=== PATIENT | female | born 1970 | race Caucasian/White ===

== ENCOUNTER 2023-09-06 12:44 | Inpatient (IN) ==
[2023-09-06] MEDS ORDERED: IOPAMIDOL 100 ML BOTTLE IV ONE (12:45)
[2023-09-06] MEDS ORDERED: 0.9 % SODIUM CHLORIDE 1,000 ML IV ONE ×2 (13:05→13:36)
[2023-09-06] MEDS ORDERED: IPRATROPIUM/ALBUTEROL 3 ML AMPUL.NEB NEB ONE (13:12)
[2023-09-06] MEDS ORDERED: cefTRIAXone 1 GM VIAL IV ONE (13:36)
[2023-09-06] MEDS ORDERED: AZITHROMYCIN 250 MG TABLET PO ONE (13:37)
[2023-09-06 14:42] LABS: ALT/SGPT 28 U/L (<40); AST/SGOT 50 U/L (<32); Albumin 3.9 gm/dL (3.2-5.2); Albumin/Globulin Ratio 1.6 (1.0-2.3); Alkaline Phosphatase 128 U/L (39-117); Bilirubin,Total 0.2 mg/dL (0.1-1.0); Blood Urea Nitrogen 12 mg/dL (6-20); Calcium 8.7 mg/dL (8.6-10.4); Carbon Dioxide 29 mmol/L (22-30); Chloride 88 mmol/L (96-108); Globulin 2.4 gm/dL (2.2-3.7); Glomerular Filtration Rate 47; Glucose 91 mg/dL (70-105); proBNP 411.7 pg/mL (<125.0)
[2023-09-06 14:46] LABS: Basophils # (Auto) 0 K/mcL (0.00-0.30); Basophils % (Auto) 0 % (0.0-2.0); Eosinophils # (Auto) 0 K/mcL (0.00-0.70); Eosinophils % (Auto) 0 % (0.0-7.0); Hematocrit 39.8 % (34.1-44.9); Hemoglobin 13.6 g/dL (11.2-15.7); Lymphocytes # (Auto) 0.19 K/mcL (1.50-4.80); Lymphocytes % (Auto) 31.7 % (15.5-49.0); Mean Cell Volume 87.1 fL (80.0-100.0); Mean Corpuscular HGB Conc 34.2 g/dL (31.0-36.0); Mean Platelet Volume 10.4 fL (8.8-12.5); Monocytes # (Auto) 0.04 K/mcL (0.10-0.90); Monocytes % (Auto) 6.7 % (1.0-12.0); Neutrophils % (Auto) 51.6 % (38.0-78.0); Platelet Count 110 K/mcL (140-440); RBC 4.57 M/mcL (3.59-5.38); Red Cell Distribution Width 12.5 % (11.5-14.5); WBC 0.6 K/mcL (4.5-11.0)
[2023-09-06] MEDS ORDERED: VANCOMYCIN PER PHARMACY IV ONE (16:33)
[2023-09-06] MEDS ORDERED: VANCOMYCIN 1,000 MG in 0.9 % SODIUM CHLORIDE 250 ML IV ONE (16:33)
[2023-09-06] MEDS ORDERED: VANCOMYCIN 750 MG in 0.9 % SODIUM CHLORIDE 250 ML IV ONE (16:45)
[2023-09-06 17:17] LABS: Anisocytosis 1+ (None Seen); Band Neutrophils % 24 % (0-10); Lymphocytes % 28 % (15-49); Metamyelocytes % 14 %; Monocytes % (Manual) 4 % (1-12); Myelocytes % 2 %; Platelet Estimate NORMAL (Normal); RBC Morphology ABNORMAL (Normal); Segmented Neutrophils % 28 % (38-78)
[2023-09-06] MEDS ORDERED: ONDANSETRON 4 MG/2 ML VIAL IV PRN (17:44)
[2023-09-06] MEDS ORDERED: IPRATROPIUM/ALBUTEROL 3 ML AMPUL.NEB NEB PRN (17:44)
[2023-09-06] MEDS ORDERED: POLYETHYLENE GLYCOL 3350 17 GM PACKET PO PRN (17:44)
[2023-09-06] MEDS ORDERED: POTASSIUM CHLORIDE 40 MEQ in DEXTROSE 5% IN WATER 500 ML IV PRN (17:44)
[2023-09-06] MEDS ORDERED: POTASSIUM CHLORIDE 20 MEQ TABLET PO PRN ×2 (17:44)
[2023-09-06] MEDS ORDERED: MAGNESIUM SULFATE 2 GM/50 ML BAG IV PRN (17:44)
[2023-09-06] MEDS ORDERED: 0.9 % SODIUM CHLORIDE 1,000 ML IV SCH (17:44)
[2023-09-06] MEDS ORDERED: PIPERACILLIN SODIUM/TAZOBACTAM 3.375 GM in DEXTROSE 5% IN WATER 50 ML IV ONE (18:00)
[2023-09-06] MEDS ORDERED: BACLOFEN 10 MG TABLET PO ONE ×2 (20:35→21:56)
[2023-09-06] MEDS ORDERED: BACLOFEN 10 MG TABLET PO PRN (20:58)
[2023-09-06] MEDS ORDERED: OSELTAMIVIR PHOSPHATE 75 MG CAPSULE PO ONE (21:00)
[2023-09-06] MEDS: PIPERACILLIN SODIUM/TAZOBACTAM 3.375 GM in DEXTROSE 5% IN WATER 100 ML IV SCH (21:55)
[2023-09-06] MEDS ORDERED: METHOCARBAMOL 500 MG TABLET PO PRN (21:55)
[2023-09-06] MEDS ORDERED: hydrOXYzine 25 MG TABLET PO PRN (21:55)
[2023-09-07] MEDS: ACETAMINOPHEN 325 MG TABLET PO PRN ×2 (00:30→16:01)
[2023-09-07] MEDS ORDERED: LACTATED RINGERS 1,000 ML IV ONE (02:04)
[2023-09-07] MEDS ORDERED: NOREPINEPHRINE BITARTRATE 4 MG/4 ML VIAL IV ONE (03:39)
[2023-09-07] MEDS ORDERED: 0.9 % SODIUM CHLORIDE 250 ML IV SCH (03:45)
[2023-09-07] MEDS: NOREPINEPHRINE BITARTRATE 8 MG in 0.9 % SODIUM CHLORIDE 242 ML IV SCH ×2 (03:52→18:37)
[2023-09-07] MEDS: 0.9 % SODIUM CHLORIDE 250 ML IV SCH ×2 (03:53→17:19)
[2023-09-07 07:08] LABS: ALT/SGPT 17 U/L (<40); AST/SGOT 36 U/L (<32); Albumin 2.7 gm/dL (3.2-5.2); Albumin/Globulin Ratio 1.3 (1.0-2.3); Alkaline Phosphatase 89 U/L (39-117); Bilirubin,Direct < 0.2 mg/dL (0-0.3); Bilirubin,Total 0.2 mg/dL (0.1-1.0); Blood Urea Nitrogen 7 mg/dL (6-20); Calcium 7.7 mg/dL (8.6-10.4); Carbon Dioxide 24 mmol/L (22-30); Chloride 102 mmol/L (96-108); Globulin 2.1 gm/dL (2.2-3.7); Glomerular Filtration Rate 104; Glucose 83 mg/dL (70-105); Lactate Dehydrogenase 245 U/L (135-225); Phosphorous 1.9 mg/dL (2.5-4.5); Triglycerides 91 mg/dL (<150); Uric Acid 1.1 mg/dL (2.5-8.0)
[2023-09-07] MEDS: PIPERACILLIN SODIUM/TAZOBACTAM 3.375 GM in DEXTROSE 5% IN WATER 100 ML IV SCH ×3 (07:09→22:52)
[2023-09-07 07:24] LABS: Hematocrit 38.1 % (34.1-44.9); Hemoglobin 12.5 g/dL (11.2-15.7); Mean Cell Volume 90.3 fL (80.0-100.0); Mean Corpuscular HGB Conc 32.8 g/dL (31.0-36.0); Mean Platelet Volume 10.5 fL (8.8-12.5); Platelet Count 111 K/mcL (140-440); RBC 4.22 M/mcL (3.59-5.38); Red Cell Distribution Width 13.1 % (11.5-14.5); WBC 1.2 K/mcL (4.5-11.0)
[2023-09-07] MEDS ORDERED: 0.9 % SODIUM CHLORIDE 1,000 ML IV SCH (08:45)
[2023-09-07] MEDS: ENOXAPARIN 30 MG/0.3 ML SYRINGE SQ SCH (08:59)
[2023-09-07] MEDS: SERTRALINE 50 MG TABLET PO SCH (08:59)
[2023-09-07] MEDS: QUEtiapine 25 MG TABLET PO SCH (08:59)
[2023-09-07] MEDS: OSELTAMIVIR PHOSPHATE 30 MG CAPSULE PO SCH ×2 (08:59→20:35)
[2023-09-07] MEDS: PHOSPHORUS 250 MG TABLET PO SCH ×4 (08:59→20:33)
[2023-09-07] MEDS ORDERED: NALOXONE SL SCH ×2 (09:00→21:00)
[2023-09-07] MEDS ORDERED: GABAPENTIN 300 MG CAPSULE PO SCH (09:00)
[2023-09-07] MEDS ORDERED: BUPRENORPHINE SL SCH ×2 (09:00→21:00)
[2023-09-07] MEDS ORDERED: busPIRone 15 MG TABLET PO SCH (09:00)
[2023-09-07] MEDS ORDERED: QUEtiapine 100 MG TABLET PO SCH (09:00)
[2023-09-07 09:32] LABS: Anisocytosis 1+ (None Seen); Band Neutrophils % 41 % (0-10); Lymphocytes % 20 % (15-49); Metamyelocytes % 4 %; Monocytes % (Manual) 9 % (1-12); Platelet Estimate DECREASED (Normal); RBC Morphology ABNORMAL (Normal); Segmented Neutrophils % 26 % (38-78)
[2023-09-07] MEDS: AZITHROMYCIN 500 MG in DEXTROSE 5% IN WATER 250 ML IV SCH (11:05)
[2023-09-07] MEDS ORDERED: ALBUMIN HUMAN 12.5 GM/50 ML VIAL IV ONE (12:00)
[2023-09-07] MEDS: BUPRENORPHINE SL SCH ×2 (14:16→20:32)
[2023-09-07] MEDS: NALOXONE SL SCH ×2 (14:16→20:32)
[2023-09-07] MEDS: busPIRone 5 MG TABLET PO SCH ×2 (15:52→20:33)
[2023-09-07] MEDS ORDERED: BACLOFEN 10 MG TABLET PO SCH (21:00)
[2023-09-07] MEDS: BACLOFEN 10 MG TABLET PO PRN (21:06)
[2023-09-07] MEDS: traZODone HCL 150 MG TABLET PO PRN (21:07)
[2023-09-08] MEDS: 0.9 % SODIUM CHLORIDE 250 ML IV SCH (03:37)
[2023-09-08 07:17] LABS: ALT/SGPT 13 U/L (<40); AST/SGOT 29 U/L (<32); Albumin 2.9 gm/dL (3.2-5.2); Albumin/Globulin Ratio 1.3 (1.0-2.3); Alkaline Phosphatase 96 U/L (39-117); Bilirubin,Direct < 0.2 mg/dL (0-0.3); Bilirubin,Total 0.3 mg/dL (0.1-1.0); Blood Urea Nitrogen 7 mg/dL (6-20); Calcium 8.4 mg/dL (8.6-10.4); Carbon Dioxide 25 mmol/L (22-30); Chloride 105 mmol/L (96-108); Globulin 2.2 gm/dL (2.2-3.7); Glomerular Filtration Rate 104; Glucose 77 mg/dL (70-105); Lactate Dehydrogenase 275 U/L (135-225); Triglycerides 110 mg/dL (<150); Uric Acid 1.1 mg/dL (2.5-8.0)
[2023-09-08] MEDS: NOREPINEPHRINE BITARTRATE 8 MG in 0.9 % SODIUM CHLORIDE 242 ML IV SCH ×2 (07:23→22:24)
[2023-09-08] MEDS: PIPERACILLIN SODIUM/TAZOBACTAM 3.375 GM in DEXTROSE 5% IN WATER 100 ML IV SCH ×3 (07:35→22:44)
[2023-09-08 08:09] LABS: Hematocrit 35.1 % (34.1-44.9); Hemoglobin 11.4 g/dL (11.2-15.7); Mean Cell Volume 90.9 fL (80.0-100.0); Mean Corpuscular HGB Conc 32.5 g/dL (31.0-36.0); Mean Platelet Volume 10.2 fL (8.8-12.5); Platelet Count 130 K/mcL (140-440); RBC 3.86 M/mcL (3.59-5.38); Red Cell Distribution Width 13.5 % (11.5-14.5); WBC 3.7 K/mcL (4.5-11.0)
[2023-09-08] MEDS: busPIRone 5 MG TABLET PO SCH ×3 (08:39→20:35)
[2023-09-08] MEDS: ENOXAPARIN 30 MG/0.3 ML SYRINGE SQ SCH (08:39)
[2023-09-08] MEDS: NALOXONE SL SCH ×2 (08:40→20:33)
[2023-09-08] MEDS: BUPRENORPHINE SL SCH ×2 (08:40→20:33)
[2023-09-08] MEDS: PHOSPHORUS 250 MG TABLET PO SCH ×4 (08:40→20:34)
[2023-09-08] MEDS: OSELTAMIVIR PHOSPHATE 30 MG CAPSULE PO SCH ×2 (08:40→20:33)
[2023-09-08] MEDS: SERTRALINE 50 MG TABLET PO SCH (08:40)
[2023-09-08 08:44] LABS: Band Neutrophils % 33 % (0-10); Eosinophils % (Manual) 1 % (0-7); Lymphocytes % 17 % (15-49); Monocytes % (Manual) 4 % (1-12); Platelet Estimate DECREASED (Normal); RBC Morphology NORMAL (Normal); Reactive Lymphocytes 1 % (0-2); Segmented Neutrophils % 44 % (38-78)
[2023-09-08] MEDS ORDERED: POTASSIUM PHOSPHATE 40 MEQ in DEXTROSE 5% IN WATER 500 ML IV SCH (09:00)
[2023-09-08] MEDS: QUEtiapine 25 MG TABLET PO SCH (11:17)
[2023-09-08] MEDS: AZITHROMYCIN 500 MG in DEXTROSE 5% IN WATER 250 ML IV SCH (11:30)
[2023-09-08] MEDS: ACETAMINOPHEN 325 MG TABLET PO PRN (19:01)
[2023-09-08] MEDS: traZODone HCL 150 MG TABLET PO PRN (20:34)
[2023-09-08] MEDS: BACLOFEN 10 MG TABLET PO PRN (20:34)
[2023-09-08] MEDS ORDERED: QUEtiapine 25 MG TABLET PO SCH (21:00)
[2023-09-09 06:33] LABS: ALT/SGPT 16 U/L (<40); AST/SGOT 35 U/L (<32); Albumin 2.8 gm/dL (3.2-5.2); Alkaline Phosphatase 154 U/L (39-117); Bilirubin,Direct < 0.2 mg/dL (0-0.3); Bilirubin,Total 0.4 mg/dL (0.1-1.0); Blood Urea Nitrogen 7 mg/dL (6-20); Calcium 8.5 mg/dL (8.6-10.4); Carbon Dioxide 26 mmol/L (22-30); Chloride 104 mmol/L (96-108); Globulin 2.7 gm/dL (2.2-3.7); Glomerular Filtration Rate 110; Glucose 88 mg/dL (70-105); Lactate Dehydrogenase 283 U/L (135-225); Phosphorous 3.4 mg/dL (2.5-4.5); Triglycerides 106 mg/dL (<150); Uric Acid 1.1 mg/dL (2.5-8.0)
[2023-09-09 06:45] LABS: Basophils # (Auto) 0.04 K/mcL (0.00-0.30); Basophils % (Auto) 0.6 % (0.0-2.0); Eosinophils # (Auto) 0.01 K/mcL (0.00-0.70); Eosinophils % (Auto) 0.2 % (0.0-7.0); Hematocrit 34.8 % (34.1-44.9); Hemoglobin 11.2 g/dL (11.2-15.7); Lymphocytes # (Auto) 0.87 K/mcL (1.50-4.80); Mean Cell Volume 90.4 fL (80.0-100.0); Mean Corpuscular HGB Conc 32.2 g/dL (31.0-36.0); Mean Platelet Volume 10.4 fL (8.8-12.5); Monocytes # (Auto) 0.56 K/mcL (0.10-0.90); Monocytes % (Auto) 8.6 % (1.0-12.0); Platelet Count 149 K/mcL (140-440); RBC 3.85 M/mcL (3.59-5.38); Red Cell Distribution Width 13.8 % (11.5-14.5); WBC 6.5 K/mcL (4.5-11.0)
[2023-09-09] MEDS: PIPERACILLIN SODIUM/TAZOBACTAM 3.375 GM in DEXTROSE 5% IN WATER 100 ML IV SCH (07:16)
[2023-09-09] MEDS ORDERED: NOREPINEPHRINE BITARTRATE 8 MG in 0.9 % SODIUM CHLORIDE 242 ML IV PRN (08:00)
[2023-09-09 08:13] LABS: Lymphocytes % (Auto) 13.4 % (15.5-49.0); Neutrophils % (Auto) 73.2 % (38.0-78.0)
[2023-09-09] MEDS: ACETAMINOPHEN 325 MG TABLET PO PRN (08:15)
[2023-09-09] MEDS: SERTRALINE 50 MG TABLET PO SCH (08:16)
[2023-09-09] MEDS: busPIRone 5 MG TABLET PO SCH ×2 (08:17→14:21)
[2023-09-09] MEDS: OSELTAMIVIR PHOSPHATE 30 MG CAPSULE PO SCH (08:17)
[2023-09-09] MEDS: ENOXAPARIN 30 MG/0.3 ML SYRINGE SQ SCH (08:17)
[2023-09-09] MEDS: BUPRENORPHINE SL SCH (08:29)
[2023-09-09] MEDS: NALOXONE SL SCH (08:29)
[2023-09-09] MEDS ORDERED: ALBUMIN HUMAN 12.5 GM/50 ML VIAL IV ONE (08:42)
[2023-09-09] MEDS ORDERED: FUROSEMIDE 20 MG/2 ML VIAL IV ONE (08:42)
[2023-09-09] MEDS ORDERED: cefTRIAXone 1 GM VIAL IV SCH (09:00)
== END 2023-09-09 14:45 | disposition home or self-care (01) | DRG 871 ==
LOC: ED 12:44 → ICU 17:40
PROVIDERS: ADMIT Internal Medicine; ATTEND Internal Medicine